=== PATIENT | female | born 2000 | race Two or more races ===

== ENCOUNTER 2022-02-26 20:31 | Emergency (ER) | payer OTHER ==
[~2022-02-26] VITALS: Ht 154.9 cm; Wt 53.5 kg
[2022-02-27] MEDS ORDERED: PYRIDIUM DS200 MG PO (01:28)
[2022-02-27] MEDS ORDERED: CEPHALEXIN500 MG PO (01:28)
== END 2022-02-27 02:45 ==
LOC: ER 20:31 → EMR PED 20:36
DX: N30.90 Cystitis, unspecified without hematuria (principal); R30.0 Dysuria; R31.9 Hematuria, unspecified; R39.15 Urgency of urination